=== PATIENT | male | born 1955 | race Two or more races ===

== ENCOUNTER → 2016-11-17 | Outpatient (CLI) | payer OTHER ==
[~2016-11-17] MED LIST: CVS20TAB PO; GALA8TAB PO; LEVO112T2 PO; MONT10TA2 PO; PRED5PAK PO; SERT-138 PO
[2016-11-17 17:54] LABS: INR 1.01
--- NOTE | 2016-11-17 18:19 | REP ---
Clinical: Preoperative assessment . Comparison: None . Technique: PA and lateral. Findings: The mediastinum and cardiac silhouette are normal. The lung bacon are clear and without acute consolidation, effusion, or pneumothorax. The skeletal structures are intact and normal. Impression: 1. No acute cardiopulmonary process. Signed by Jose An MD 11/17/2016 06:11 P
[2016-11-17 18:36] LABS: MEAN CORPUSCULAR HEMOGLOBIN 33.4 pg (27.0-33.0); MEAN CORPUSCULAR HGB CONC 34.3 g/dl (32.0-36.5); MEAN CORPUSCULAR VOLUME 97.4 fl (80.0-96.0); RED CELL DISTRIBUTION WIDTH 12.5 % (11.5-14.5); WHITE BLOOD COUNT 10.3 K/mm3 (4.0-10.0)
[2016-11-17 19:12] LABS: ANION GAP 5 MEQ/L (8-16); BLOOD UREA NITROGEN 21 MG/DL (7-18); CALCIUM LEVEL 9.1 MG/DL (8.8-10.2); CARBON DIOXIDE LEVEL 29 MEQ/L (21-32); CHLORIDE LEVEL 107 MEQ/L (98-107); CREATININE FOR GFR 0.99 MG/DL (0.70-1.30); GLOMERULAR FILTRATION RATE > 60.0 (>49); GLUCOSE, FASTING 114 MG/DL (80-110); POTASSIUM SERUM 4.1 MEQ/L (3.5-5.1); SODIUM LEVEL 141 MEQ/L (136-145)
[2016-11-17 21:27] LABS: SQUAMOUS EPITHELIAL CELL URINE SMALL AMOUNT /hpf (SMALL AMT)
[2016-11-17 21:28] LABS: BACTERIA, URINE SMALL AMOUNT; CALCIUM OXALATE CRYSTALS,URINE MOD AMOUNT /hpf; HYALINE CAST, URINE NONE SEEN /lpf (0-1)
[2016-11-17 21:29] LABS: MICROSCOPIC EXAM PERFORMED
--- NOTE | 2016-11-18 22:18 | ECGEPIP ---
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
== END ==
LOC: M LAB 16:41
PROVIDERS: ATTEND Specialist
DX: Z01.818 Encounter for other preprocedural examination (principal); D41.4 Neoplasm of uncertain behavior of bladder

== ENCOUNTER → 2016-11-18 | Day surgery (SDC) | payer OTHER ==
[~2016-11-18] VITALS: Ht 170.2 cm; Wt 74.0 kg
[~2016-11-18] MED LIST changes: +GLYCOPYRROLATE INJ 0.2 MG/ML 2 ML VIAL As Ordered ONE; +LIDOCAINE 2% INJ 100 MG/5 ML SDV (FOR ANES.) As Ordered ONE; +LR 1,000 ML IV SCH; +METHYLENE BLUE 0.5% (5MG/ML) 10 ML AMP (PROVAYBLUE)(Q9968 PER 1MG) As Ordered ONE; +METOCLOPRAMIDE INJ 10MG/2ML VIAL (J2765) As Ordered ONE; +METOCLOPRAMIDE INJ 10MG/2ML VIAL (J2765) IV PRN; +MIDAZOLAM INJ 2 MG/2 ML VIAL (J2250) As Ordered ONE; +NEOSTIGMINE 1MG/ML 5 ML SYRINGE (J2710) As Ordered ONE; +ONDANSETRON 4MG/2ML VIAL (J2405) As Ordered ONE; +ONDANSETRON 4MG/2ML VIAL (J2405) IV PRN; +PROPOFOL 200 MG/20 ML VIAL As Ordered ONE; +ROCURONIUM BROMIDE 50 MG/5 ML VIAL As Ordered ONE; +ePHEDrine SULFATE 25 MG/5 ML(5MG/ML) SYRINGE As Ordered ONE; +fentaNYL 100 MCG/2 ML INJECTION (J3010) As Ordered ONE; +fentaNYL 250 MCG/5 ML INJECTION (J3010) As Ordered ONE; +mitoMYcin 40 MG VIAL (J9280) INTRAVESIC ONE
[2016-11-18] MEDS: fentaNYL 100 MCG/2 ML INJECTION (J3010) IV PRN ×3 (18:25→18:35)
[2016-11-18 20:40] VITALS: BP 131/77
--- NOTE | 2016-11-19 00:16 | RO ---
DATE OF PROCEDURE: 11/18/2016 PREOPERATIVE DIAGNOSIS: Large bladder tumor. POSTOPERATIVE DIAGNOSIS: Large bladder tumor. PROCEDURE: Cystoscopy, transurethral resection of a bladder tumor, and mitomycin instillation SURGEON: Dr. Ирина Baxter STRUCTURAL STEEL ENGINEER: ANESTHESIA: General. MEDICATIONS: Ancef 2 grams preoperatively. SPECIMENS: Bladder tumor. INDICATIONS FOR PROCEDURE: The patient is a 61-year-old gentleman who came into the office and saw our nurse practitioner, Inez Sharp. 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 There was also lobulated filling defects seen in the bladder. The patient was very concerned about this, so we decided to do a cystoscopy then and there in the office. Cystoscopy showed a large papillary mass originating just next to the ureteral orifice on the left side of the bladder. After discussing all different options, alternatives, risks, and benefits, it was decided to bring the patient to the operating room for resection and mitomycin instillation. All options, alternatives, risks, and benefits were discussed at length and informed consent was obtained in both verbal and written form. DESCRIPTION OF PROCEDURE: The patient was brought into the operating room. Sequential compression devices and thromboembolism deterrent (LISSET) stockings were in place. Preoperative antibiotics were given. General anesthesia was induced. The patient was then placed in the lithotomy position and careful attention was paid that his pressure points were well padded and protected. He was prepped and draped in the usual fashion. Next, a 25-Taiwanese continuous flow resectoscope was placed under direct vision. The prostatic urethra was not seen to have any significant obstruction. Upon entering the bladder, again a very large mass, at least measuring 5 cm, was seen coming off of the left lateral wall. Now, I was able to see the left ureteral orifice very close to the base of this tumor. At this point, the loop was placed and the tumor was resected completely using the loop. Hemostasis was obtained using coagulation. At the conclusion of the procedure, the left ureteral orifice was intact and the tumor was completely removed. There was no other tumor seen in the bladder. At this point, a 22-Taiwanese Felipe catheter was placed and mitomycin was placed in the bladder. This will be left in the bladder for a total of 60 minutes and then it will be drained before the patient goes home. I am recommending that he be discharged with the Felipe catheter in place for 48 hours since the TURBT was deep in order to remove the entire tumor and also to get adequate tissue. The patient tolerated the procedure well and was returned to the recovery room in stable condition.
== END ==
LOC: M SDC 14:27
PROVIDERS: ATTEND Specialist
DX: C67.2 Malignant neoplasm of lateral wall of bladder (principal); K65.4 Sclerosing mesenteritis; R31.0 Gross hematuria; I10 Essential (primary) hypertension; K21.9 Gastro-esophageal reflux disease without esophagitis; G30.9 Alzheimer's disease, unspecified; E07.9 Disorder of thyroid, unspecified; E78.5 Hyperlipidemia, unspecified; Z79.899 Other long term (current) drug therapy
CPT/HCPCS: 52235; 88307; J0690; J2250; J2405; J2710; J2765; J3010; J9280; Q9968

== ENCOUNTER → 2017-03-15 | Outpatient (CLI) | payer OTHER ==
[~2017-03-15] MED LIST changes: +FLOM5CAP PO; -GLYCOPYRROLATE INJ 0.2 MG/ML 2 ML VIAL As Ordered ONE; -LIDOCAINE 2% INJ 100 MG/5 ML SDV (FOR ANES.) As Ordered ONE; -LR 1,000 ML IV SCH; -METHYLENE BLUE 0.5% (5MG/ML) 10 ML AMP (PROVAYBLUE)(Q9968 PER 1MG) As Ordered ONE; -METOCLOPRAMIDE INJ 10MG/2ML VIAL (J2765) As Ordered ONE; -METOCLOPRAMIDE INJ 10MG/2ML VIAL (J2765) IV PRN; -MIDAZOLAM INJ 2 MG/2 ML VIAL (J2250) As Ordered ONE; -NEOSTIGMINE 1MG/ML 5 ML SYRINGE (J2710) As Ordered ONE; -ONDANSETRON 4MG/2ML VIAL (J2405) As Ordered ONE; -ONDANSETRON 4MG/2ML VIAL (J2405) IV PRN; -PROPOFOL 200 MG/20 ML VIAL As Ordered ONE; -ROCURONIUM BROMIDE 50 MG/5 ML VIAL As Ordered ONE; +VITA-110 PO; +VITA400C7 PO; -ePHEDrine SULFATE 25 MG/5 ML(5MG/ML) SYRINGE As Ordered ONE; -fentaNYL 100 MCG/2 ML INJECTION (J3010) As Ordered ONE; -fentaNYL 250 MCG/5 ML INJECTION (J3010) As Ordered ONE; -mitoMYcin 40 MG VIAL (J9280) INTRAVESIC ONE
[2017-03-15 16:00] LABS: MEAN CORPUSCULAR HEMOGLOBIN 33.3 pg (27.0-33.0); MEAN CORPUSCULAR HGB CONC 35.3 g/dl (32.0-36.5); MEAN CORPUSCULAR VOLUME 94.3 fl (80.0-96.0); RED CELL DISTRIBUTION WIDTH 13.1 % (11.5-14.5); WHITE BLOOD COUNT 9.4 K/mm3 (4.0-10.0)
[2017-03-15 16:24] LABS: ANION GAP 8 MEQ/L (8-16); BLOOD UREA NITROGEN 17 MG/DL (7-18); CALCIUM LEVEL 8.6 MG/DL (8.8-10.2); CARBON DIOXIDE LEVEL 29 MEQ/L (21-32); CHLORIDE LEVEL 101 MEQ/L (98-107); GLOMERULAR FILTRATION RATE > 60.0 (>49); GLUCOSE, FASTING 102 MG/DL (80-110); POTASSIUM SERUM 3.7 MEQ/L (3.5-5.1); SODIUM LEVEL 138 MEQ/L (136-145)
--- NOTE | 2017-03-15 17:41 | ECGEPIP ---
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
== END ==
LOC: M LAB 14:41
PROVIDERS: ATTEND Specialist
DX: Z01.818 Encounter for other preprocedural examination (principal); C67.9 Malignant neoplasm of bladder, unspecified

== ENCOUNTER 2017-03-30 09:27 | Day surgery (SDC) | payer OTHER ==
[~2017-03-30] VITALS: Ht 167.6 cm; Wt 68.9 kg
[~2017-03-30 09:27] MED LIST changes: +MIDAZOLAM INJ 2 MG/2 ML VIAL (J2250) As Ordered ONE; +fentaNYL 100 MCG/2 ML INJECTION (J3010) As Ordered ONE
[2017-03-30] MEDS ORDERED: LR 1,000 ML IV SCH ×2 (09:45→11:30)
[2017-03-30] MEDS ORDERED: mitoMYcin 40MG VIAL (J9280 PER 5MG) INTRAVESIC ONE (10:00)
[2017-03-30] MEDS ORDERED: ROCURONIUM BROMIDE 50 MG/5 ML VIAL/SYRINGE As Ordered ONE (10:28)
[2017-03-30] MEDS ORDERED: LIDOCAINE 2% INJ 100 MG/5 ML SDV (FOR ANES.) As Ordered ONE (10:28)
[2017-03-30] MEDS ORDERED: PROPOFOL 200 MG/20 ML VIAL As Ordered ONE (10:28)
[2017-03-30] MEDS ORDERED: ONDANSETRON 4MG/2ML VIAL (J2405) As Ordered ONE (10:28)
[2017-03-30] MEDS ORDERED: dexameTHASONE 4 MG/ML 1ML VIAL (J1100) As Ordered ONE (10:29)
[2017-03-30] MEDS ORDERED: KETOROLAC 60 MG/2 ML VIAL (J1885) As Ordered ONE (10:29)
[2017-03-30] MEDS ORDERED: SUGAMMADEX SODIUM 500 MG/5 ML VIAL (BRIDION) As Ordered ONE (10:50)
[2017-03-30] MEDS ORDERED: ONDANSETRON 4MG/2ML VIAL (J2405) IV PRN (11:30)
[2017-03-30] MEDS ORDERED: fentaNYL 100 MCG/2 ML INJECTION (J3010) IV PRN (11:30)
[2017-03-30] MEDS ORDERED: NORCO, ANEXSIA 5/325MG TABLET (HYDROcodone/ACETAMINOPHEN) PO ONE (13:00)
[2017-03-30 13:15] VITALS: BP 144/72
--- NOTE | 2017-03-30 22:51 | RO ---
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 PROCEDURE: Cystoscopy, transurethral resection of a bladder mass and mitomycin placement intravesically. SURGEON: Dr. Ирина Baxter ANESTHESIA: General. MEDICATIONS: Ancef 2 grams preoperatively. DRAINS: 20-Panamanian Felipe catheter. SPECIMENS: Bladder tissue. 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 He had 6 weeks of BCG, which finished 01/26/2017. Cystoscopy showed quite a lot of inflammatory tissue over the previous resection site and what possibly looked like recurrent tumor. After discussing all different options, alternatives, risks, and benefits it was decided to bring him to the operating room to remove this tissue and to send pathology. Informed consent was obtained in both verbal and written form. PROCEDURE: The patient was brought into the operating room. Sequential compression devices were in place and preoperative antibiotics had been given. Next, general anesthesia was induced. The patient was then placed in the lithotomy position and careful attention was paid that his pressure points were well padded and protected. He was prepped and draped in the usual fashion. A 24-Panamanian direct vision resectoscope was then inserted and both ureteral orifices were seen. The bladder showed no abnormalities except for over the previous TURBT site, which was on the left side of the bladder just posterior to the left ureteral orifice. Again, the inflammatory tissue with possible recurrence tumor was seen and using a Loupe this was completely resected down to leave even where a small amount of fat was seen. When it appeared that this was completely clear, the area was fulgurated for hemostasis. A 20-Panamanian Felipe catheter was placed with mitomycin instillation. The mitomycin will stay in place for 60 minutes and then be drained. The patient will be discharged home with a 20-Panamanian Felipe catheter to gravity drainage for at least 48 hours and then can be removed.
== END 2017-03-30 13:40 ==
LOC: M SDC 09:27
PROVIDERS: ATTEND Specialist
DX: C67.9 Malignant neoplasm of bladder, unspecified (principal); E03.9 Hypothyroidism, unspecified; G30.9 Alzheimer's disease, unspecified; F02.81 Dementia in other diseases classified elsewhere, unspecified severity, with behavioral disturbance; N40.0 Benign prostatic hyperplasia without lower urinary tract symptoms; F32.9 Major depressive disorder, single episode, unspecified; F41.9 Anxiety disorder, unspecified; K65.4 Sclerosing mesenteritis; L43.9 Lichen planus, unspecified; Z79.899 Other long term (current) drug therapy; Z87.891 Personal history of nicotine dependence

== ENCOUNTER → 2017-08-16 | Outpatient (CLI) | payer OTHER ==
[2017-08-16 17:27] LABS: ANION GAP 6 MEQ/L (8-16); BLOOD UREA NITROGEN 17 MG/DL (7-18); CALCIUM LEVEL 9.1 MG/DL (8.8-10.2); CARBON DIOXIDE LEVEL 32 MEQ/L (21-32); CHLORIDE LEVEL 106 MEQ/L (98-107); CREATININE FOR GFR 1.15 MG/DL (0.70-1.30); GLOMERULAR FILTRATION RATE > 60.0 (>49); GLUCOSE, FASTING 81 MG/DL (80-110); POTASSIUM SERUM 4.2 MEQ/L (3.5-5.1); SODIUM LEVEL 144 MEQ/L (136-145)
== END ==
LOC: M SMT 13:51
DX: N13.30 Unspecified hydronephrosis (principal)
CPT/HCPCS: 80048

== ENCOUNTER → 2017-09-07 | Outpatient (CLI) | payer MEDICARE ==
[2017-09-07 14:33] LABS: HEMOGLOBIN 14.1 g/dl (14.0-18.0); MEAN CORPUSCULAR HEMOGLOBIN 32.7 pg (27.0-33.0); MEAN CORPUSCULAR HGB CONC 34.4 g/dl (32.0-36.5); MEAN CORPUSCULAR VOLUME 95.1 fl (80.0-96.0); PLATELET COUNT, AUTOMATED 216 10^3/uL (150-450); RED BLOOD COUNT 4.31 10^6/uL (4.30-6.10); RED CELL DISTRIBUTION WIDTH 12.9 % (11.5-14.5); WHITE BLOOD COUNT 10.9 10^3/uL (4.0-10.0)
[2017-09-07 14:56] LABS: WBC, URINE TNTC /hpf (0-3)
[2017-09-07 15:00] LABS: ANION GAP 6 MEQ/L (8-16); BACTERIA, URINE MOD AMOUNT; BLOOD UREA NITROGEN 18 MG/DL (7-18); CALCIUM LEVEL 8.9 MG/DL (8.8-10.2); CARBON DIOXIDE LEVEL 30 MEQ/L (21-32); CHLORIDE LEVEL 107 MEQ/L (98-107); CREATININE FOR GFR 1.13 MG/DL (0.70-1.30); GLOMERULAR FILTRATION RATE > 60.0 (>49); GLUCOSE, FASTING 99 MG/DL (80-110); HYALINE CAST, URINE NONE SEEN /lpf (0-1); MUCUS, URINE MOD AMOUNT (NEGATIVE); POTASSIUM SERUM 4.3 MEQ/L (3.5-5.1); SODIUM LEVEL 143 MEQ/L (136-145); SQUAMOUS EPITHELIAL CELL URINE SMALL AMOUNT /hpf (SMALL AMT)
[2017-09-07 15:01] LABS: MICROSCOPIC EXAM PERFORMED
== END ==
LOC: M LAB 13:35
DX: C67.9 Malignant neoplasm of bladder, unspecified (principal); Z79.899 Other long term (current) drug therapy
CPT/HCPCS: 80048

== ENCOUNTER 2017-09-11 12:16 | Day surgery (SDC) | payer MEDICARE ==
[~2017-09-11 12:16] MED LIST changes: -CVS20TAB PO; -FLOM5CAP PO; -GALA8TAB PO; -LEVO112T2 PO; -MIDAZOLAM INJ 2 MG/2 ML VIAL (J2250) As Ordered ONE; -MONT10TA2 PO; -PRED5PAK PO; -SERT-138 PO; -VITA-110 PO; -VITA400C7 PO; -fentaNYL 100 MCG/2 ML INJECTION (J3010) As Ordered ONE; +mitoMYcin 40MG VIAL (J9280 PER 5MG) INTRAVESIC
[2017-09-11] MEDS: LR 1,000 ML IV (12:52)
[2017-09-11] MEDS ORDERED: PROPOFOL 200 MG/20 ML VIAL As Ordered (13:09)
[2017-09-11] MEDS ORDERED: LIDOCAINE 2% INJ 100 MG/5 ML SDV (FOR ANES.) As Ordered (13:10)
[2017-09-11] MEDS ORDERED: MIDAZOLAM INJ 2 MG/2 ML VIAL (J2250) As Ordered (13:10)
[2017-09-11] MEDS ORDERED: fentaNYL 100 MCG/2 ML INJECTION (J3010) As Ordered (13:10)
[2017-09-11] MEDS ORDERED: HYDROCORTISONE 100 MG/2 ML VIAL (J1720) As Ordered (14:06)
[2017-09-11] MEDS ORDERED: dexameTHASONE 4 MG/ML 1ML VIAL (J1100) As Ordered (14:18)
[2017-09-11] MEDS ORDERED: ONDANSETRON 4MG/2ML VIAL (J2405) As Ordered (14:51)
[2017-09-11] MEDS ORDERED: GLYCOPYRROLATE INJ 0.2 MG/ML 2 ML VIAL As Ordered (14:52)
[2017-09-11] MEDS: METHYLENE BLUE 0.5% (5MG/ML) 10 ML AMP (PROVAYBLUE)(Q9968 PER 1MG) As Ordered (15:03)
[2017-09-11] MEDS: CONRAY-60 60% 50ML VIAL (Q9961) As Ordered (15:03)
[2017-09-11] MEDS ORDERED: FLUORESCEIN 10% (100MG/ML) 5 ML VIAL As Ordered (15:13)
[2017-09-11] MEDS ORDERED: MORPHINE 10 MG/ML 1ML VIAL IV (16:15)
[2017-09-11] MEDS ORDERED: LR 1,000 ML IV (16:15)
[2017-09-11] MEDS ORDERED: fentaNYL 100 MCG/2 ML INJECTION (J3010) IV (16:15)
[2017-09-11] MEDS ORDERED: PERCOCET 5MG/325MG TAB PO (16:15)
== END 2017-09-11 18:30 | disposition home or self-care (01) ==
LOC: M SDC 18:30
DX: N13.4 Hydroureter (principal); C67.9 Malignant neoplasm of bladder, unspecified; K65.4 Sclerosing mesenteritis; R30.0 Dysuria; R39.89 Other symptoms and signs involving the genitourinary system; I10 Essential (primary) hypertension; E03.9 Hypothyroidism, unspecified; N40.0 Benign prostatic hyperplasia without lower urinary tract symptoms; Z79.899 Other long term (current) drug therapy; Z85.828 Personal history of other malignant neoplasm of skin; Z85.46 Personal history of malignant neoplasm of prostate; Z87.2 Personal history of diseases of the skin and subcutaneous tissue
CPT/HCPCS: 52204

== ENCOUNTER 2017-09-13 11:05 | Outpatient (CLI) | payer MEDICARE ==
[2017-09-13] MEDS ORDERED: ISOVUE-300 61% 50ML VIAL (Q9967) As Ordered (11:26)
[2017-09-13 11:34] LABS: PROTHROMBIN TIME 13.3 SECONDS (12.4-14.5)
[2017-09-13 11:35] LABS: PARTIAL THROMBOPLASTIN TIME 27.2 SECONDS (26.8-37.9)
[2017-09-13] MEDS ORDERED: MIDAZOLAM INJ 2 MG/2 ML VIAL (J2250) As Ordered (11:54)
[2017-09-13] MEDS ORDERED: fentaNYL 100 MCG/2 ML INJECTION (J3010) As Ordered (11:54)
[2017-09-13] MEDS ORDERED: ceFAZolin 1GM INJ (J0690 PER 500MG) As Ordered (12:43)
[2017-09-13] MEDS ORDERED: PERCOCET 5MG/325MG TAB As Ordered (13:44)
[2017-09-13] MEDS ORDERED: ONDANSETRON 4MG/2ML VIAL (J2405) IV (13:45)
[2017-09-13] MEDS ORDERED: LR 1,000 ML IV (13:45)
[2017-09-13] MEDS ORDERED: fentaNYL 100 MCG/2 ML INJECTION (J3010) IV (13:45)
[2017-09-13] MEDS ORDERED: HYDROmorphone HCL 1 MG/ML SYRINGE (J1170) IV (13:45)
[2017-09-13] MEDS ORDERED: CEFAZOLIN SOD 1 GM in APPROPRIATE DILUENT 1 EA IV (13:45)
[2017-09-13] MEDS: PERCOCET 5MG/325MG TAB PO (13:46)
== END 2017-09-13 15:42 | disposition home or self-care (01) ==
LOC: M RADPRO 15:42
DX: C67.0 Malignant neoplasm of trigone of bladder (principal); N13.30 Unspecified hydronephrosis; Z79.52 Long term (current) use of systemic steroids; Z79.899 Other long term (current) drug therapy
CPT/HCPCS: 50695

== ENCOUNTER 2017-09-25 09:45 | Day surgery (SDC) | payer MEDICARE ==
[2017-09-25] MEDS: LR 1,000 ML IV (10:05)
[2017-09-25] MEDS ORDERED: PROPOFOL 200 MG/20 ML VIAL As Ordered (11:11)
[2017-09-25] MEDS ORDERED: LIDOCAINE 2% INJ 100 MG/5 ML SYRINGE As Ordered (11:11)
[2017-09-25] MEDS ORDERED: HYDROCORTISONE 100 MG/2 ML VIAL (J1720) As Ordered (11:19)
[2017-09-25] MEDS ORDERED: fentaNYL 100 MCG/2 ML INJECTION (J3010) As Ordered (11:26)
[2017-09-25] MEDS ORDERED: ePHEDrine INJ 50 MG/ML VIAL As Ordered (11:32)
[2017-09-25] MEDS: CONRAY-60 60% 50ML VIAL (Q9961) As Ordered (11:45)
[2017-09-25] MEDS ORDERED: ONDANSETRON 4MG/2ML VIAL (J2405) As Ordered (12:12)
[2017-09-25] MEDS ORDERED: PERCOCET 5MG/325MG TAB PO ×2 (12:45)
[2017-09-25] MEDS ORDERED: fentaNYL 100 MCG/2 ML INJECTION (J3010) IV (12:45)
[2017-09-25] MEDS ORDERED: LR 1,000 ML IV (12:45)
[2017-09-25] MEDS ORDERED: ONDANSETRON 4MG/2ML VIAL (J2405) IV (12:45)
[2017-09-25] MEDS: PERCOCET 5MG/325MG TAB PO (13:20)
== END 2017-09-25 14:20 | disposition home or self-care (01) ==
LOC: M SDC 09:45
DX: N35.9 Urethral stricture, unspecified (principal); C67.9 Malignant neoplasm of bladder, unspecified; N13.30 Unspecified hydronephrosis; E03.9 Hypothyroidism, unspecified; L43.9 Lichen planus, unspecified; G30.0 Alzheimer's disease with early onset; K65.4 Sclerosing mesenteritis; G31.85 Corticobasal degeneration; R34 Anuria and oliguria; I10 Essential (primary) hypertension; R23.3 Spontaneous ecchymoses; R29.898 Other symptoms and signs involving the musculoskeletal system; F41.9 Anxiety disorder, unspecified; F32.9 Major depressive disorder, single episode, unspecified; N40.0 Benign prostatic hyperplasia without lower urinary tract symptoms; Z79.899 Other long term (current) drug therapy; Z85.828 Personal history of other malignant neoplasm of skin; Z87.891 Personal history of nicotine dependence; Z86.19 Personal history of other infectious and parasitic diseases
CPT/HCPCS: 52332

== ENCOUNTER → 2018-01-16 | Outpatient (REF) | payer MEDICARE | LOC: M SMT 13:11 | DX: C67.9 Malignant neoplasm of bladder, unspecified (principal) | CPT/HCPCS: 88108 ==

== ENCOUNTER → 2018-04-17 | Outpatient (REF) | payer MEDICARE | LOC: M SMT 13:30 | DX: C67.9 Malignant neoplasm of bladder, unspecified (principal) | CPT/HCPCS: 88108 ==

== ENCOUNTER → 2018-10-15 | Outpatient (REF) | payer MEDICARE ==
[~2018-10-15] MED LIST changes: +CITRTAB13 PO; +CITRTAB15 PO; +CVS20TAB PO; +FLOM0.4C39 PO; +GALA8TAB PO; +LEVO112T2 PO; +MEMA1TAB2; +MONT10TA2 PO; +PRED5PAK PO; +SERT-138 PO; +VITA-110 PO; +VITA400C7 PO; -mitoMYcin 40MG VIAL (J9280 PER 5MG) INTRAVESIC
== END ==
LOC: M SMT 12:38
PROVIDERS: ATTEND Urology
DX: C67.9 Malignant neoplasm of bladder, unspecified (principal)

== ENCOUNTER 2019-01-04 07:40 | Day surgery (SDC) | payer MEDICARE ==
[~2019-01-04] VITALS: Ht 170.2 cm; Wt 82.5 kg
[~2019-01-04 07:40] MED LIST changes: +AMLO25TA PO; -CVS20TAB PO; +HM V5000 PO; +LEXA1TAB2 PO; +LIDOCAINE 1% MDV 20ML VIAL SQ PRN; +LR 1,000 ML IV ONE; -MEMA1TAB2; +MEMA1TAB2 PO; +OLAN2.5T25 PO; +OMEP20TA9 PO; +SYNT100T PO; +VITA400T24 PO; +VITAD1000T PO
[2019-01-04] MEDS ORDERED: LIDOCAINE 2% 5ML JELLY UROJET As Ordered ONE (09:11)
[2019-01-04] MEDS ORDERED: CONRAY-60 60% 50ML VIAL (Q9961) As Ordered ONE ×2 (09:11→10:17)
[2019-01-04] MEDS ORDERED: ACETAMINOPHEN TAB 650MG DOSE (2X325MG) As Ordered ONE (11:02)
[2019-01-04] MEDS ORDERED: LR 1,000 ML IV SCH (11:15)
[2019-01-04] MEDS ORDERED: fentaNYL 100 MCG/2 ML INJECTION (J3010) IV PRN (11:15)
[2019-01-04] MEDS ORDERED: ONDANSETRON 4MG/2ML VIAL (J2405) IV PRN (11:15)
[2019-01-04] MEDS ORDERED: ACETAMINOPHEN TAB 650MG DOSE (2X325MG) PO PRN (11:15)
[2019-01-04 13:05] VITALS: BP 143/79
--- NOTE | 2019-01-04 13:24 | REP ---
Retrograde pyelogram: Six views. History: Left-sided hydronephrosis. 1 minute 8 seconds of fluoroscopy time is reported. Findings: A sequence of six last image hold fluoroscopically obtained spot radiographs document attempted cannulation and contrast injection in the left ureter. There is some contrast extravasation and venous contrast seen. A Felipe catheter balloon is noted in the urinary bladder. Electronically Signed by Tyler Stallings MD 01/04/2019 06:29 P
--- NOTE | 2019-01-05 09:40 | RO ---
DATE OF PROCEDURE: 01/04/2019 PREPROCEDURE DIAGNOSIS: Left ureteral stricture. POSTPROCEDURE DIAGNOSIS: Left ureteral stricture, left ureteral stones. PROCEDURE: Cystoscopy, left ureteroscopy with laser lithotripsy and basket extraction of stones, left retrograde pyelogram with intraoperative interpretation of images. SURGEON: Van Zendejas MD PETROLEUM REFINERY WORKER: None. ANESTHESIA: Monitored anesthesia care (MAC). OPERATIVE INDICATIONS: This is a 63-year-old male with a history of a left ureteral stricture, which has been treated with balloon dilation previously. On recent labs, his creatinine was not noted to be elevated and ultrasound noted left hydronephrosis raising concern for another stricture. He was brought to the operating room today for treatment of stricture. DESCRIPTION OF PROCEDURE: The patient was brought to the operating room where MAC anesthesia was administered. Prophylactic antibiotics were infused. He was then placed in the dorsal lithotomy position, prepped and draped in the usual sterile fashion. A rigid cystoscope was inserted into the urethral meatus and advanced into the bladder. Once inside in the bladder, of note his left ureteral orifice was orthotopic as it was previously resected for a bladder tumor. Within the left ureteral orifice, there were calcifications. I then utilized the 270 micron laser fiber to fragment these calcifications and they were removed using a basket. I was doing this with the hope that I would be able to get into the left ureteral lumen. At this point, I spent a significant amount of time trying to advance a wire up the left ureter as well as shoot contrast to try establish a location of the left ureteral lumen and as of note, I could not do this. The left ureteral lumen distally appeared to be completely obliterated. The patient did have some mild bleeding from this area in the distal left ureter. At this point, the stone fragments were retrieved and the scope was removed. I then advanced an 18-Tristanian Felipe catheter into the bladder. The balloon was filled with 10 mL of sterile water. The catheter was connected to gravity drainage and this marked the conclusion of the procedure. The patient was then taken out of the dorsal lithotomy position, awakened from anesthesia and transported to the recovery room in stable condition. ESTIMATED BLOOD LOSS: 5 mL. COMPLICATIONS: None. SPECIMENS: Left ureteral stone fragments. PLAN: We will need to set this patient up for ideally a left nephroureteral stent placement in interventional radiology and if they cannot get the catheter all the way down to the bladder at minimum a left nephrostomy tube. The patient if healthy enough ultimately would benefit from a left ureteral reimplantation. MTDD
[2019-01-09 00:08] LABS: Ca Ox Monohydrate 30 % (.); Size 5x4x3 mm (.)
== END 2019-01-04 13:15 | disposition home or self-care (01) ==
LOC: M SDC 07:40
PROVIDERS: ATTEND Urology
DX: N20.1 Calculus of ureter (principal); I10 Essential (primary) hypertension; E03.9 Hypothyroidism, unspecified; F03.90 Unspecified dementia, unspecified severity, without behavioral disturbance, psychotic disturbance, mood disturbance, and anxiety; F41.9 Anxiety disorder, unspecified; Z79.52 Long term (current) use of systemic steroids; Z79.899 Other long term (current) drug therapy; Z85.51 Personal history of malignant neoplasm of bladder
CPT/HCPCS: 52356; 74420; 82360; 88300; C1769; J0690; Q9961

== ENCOUNTER → 2019-02-14 | Outpatient (CLI) | payer MEDICARE ==
[~2019-02-14] MED LIST changes: -LIDOCAINE 1% MDV 20ML VIAL SQ PRN; -LR 1,000 ML IV ONE
--- NOTE | 2019-02-14 10:52 | REP ---
Clinical: Hydronephrosis. Comparison: 08/28/2017. Findings: Lung bases demonstrate mild fibroatelectatic changes involving the right middle lobe and left lower lobe. Liver, spleen, pancreas, bilateral adrenal glands and right kidney appear normal. Evidence for prior cholecystectomy. The left kidney demonstrates atrophic change along with the the the for percutaneous urostomy catheter extending into the bladder and no significant hydronephrosis. The bladder itself demonstrates mild left lateral bladder wall thickening/irregularity which may be related to prior surgery. The prostate gland and prominent seminal vesicles are again noted. Evaluation of the enteric system is without obstruction or acute inflammatory process. There is a 4.6 cm predominate calcified mass within the central mesentery demonstrating spiculations which is unchanged and likely chronic. No ascites. No free air. No significant adenopathy. Abdominal aorta without aneurysm. Musculoskeletal structures are intact. Impression: 1. Left kidney now demonstrates atrophic changes with percutaneous urostomy tube extending to the bladder and no evidence for hydronephrosis. Mild left-sided bladder wall thickening may be related to prior surgery. 2. 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 3. No free air, free fluid, focal inflammatory stranding, or obvious adenopathy. Electronically Signed by Jose An MD 02/14/2019 10:43 A
== END ==
LOC: M RAD 08:37
PROVIDERS: ATTEND Urology
DX: N13.5 Crossing vessel and stricture of ureter without hydronephrosis (principal); C68.9 Malignant neoplasm of urinary organ, unspecified

== ENCOUNTER → 2019-04-29 | Outpatient (REF) | payer MEDICARE ==
[~2019-04-29] MED LIST changes: +CHOL100029 PO; -VITAD1000T PO
== END ==
LOC: M SMT 13:06
PROVIDERS: ATTEND Urology
DX: C67.9 Malignant neoplasm of bladder, unspecified (principal)

== ENCOUNTER → 2019-12-30 | Outpatient (REF) | payer MEDICARE ==
[~2019-12-30] MED LIST changes: -CITRTAB13 PO; +CITRTAB16 PO; -GALA8TAB PO; +GALA8TAB10 PO; +MEMA10TA19 PO; -MEMA1TAB2 PO; +MONT10TA10 PO; -MONT10TA2 PO
== END ==
LOC: M SMT 17:36
PROVIDERS: ATTEND Urology
DX: C67.9 Malignant neoplasm of bladder, unspecified (principal)

== ENCOUNTER → 2020-07-31 | Outpatient (REF) | payer MEDICARE ==
[~2020-07-31] MED LIST changes: -MONT10TA10 PO; +MONT5TAB2 PO
== END ==
LOC: M SMT 17:05
PROVIDERS: ATTEND Urology
DX: Z85.51 Personal history of malignant neoplasm of bladder (principal)